=== PATIENT | male | born 1955 | race Caucasian/White ===

== ENCOUNTER → 2018-02-07 | Outpatient (CLI) | payer OTHER | LOC: M.RAD 09:46 | DX: M25.462 Effusion, left knee (principal) ==

== ENCOUNTER → 2020-05-17 | Outpatient (CLI) | payer OTHER | LOC: M.ULTRA 05-14 09:40 | PROVIDERS: ATTEND Internal Medicine | DX: N20.0 Calculus of kidney (principal); N13.30 Unspecified hydronephrosis; R10.31 Right lower quadrant pain; R10.11 Right upper quadrant pain ==